=== PATIENT | female | born 1995 | race Two or more races ===

== ENCOUNTER 2017-08-04 13:01 | Day surgery (SDC) | payer BC ==
[~2017-08-04 13:01] MED LIST: Buffered Lidocaine 0.9% SYRIN* 5 ML/SYR SYRINGE INTRADERM ONE; DiMENhydriNATE IV* 50 MG/ML VIAL IV PUSH PRN; Famotidine IV* 10 MG/ML 2 ML (20 mg) IV ONE; Naloxone* 0.4 MG/ML 1 ML VIAL IV PRN; PROCHLORPERAZINE INJ 5 MG/ML 2 ML VIAL IV PRN; Scopolamine 1.5 mg* PATCH TRANSDERM PRN; fentaNYL* 50 MCG/ML 2 ML VIAL (100 MCG VIAL) IV PRN; oxyCODONE/Acetamin 5/325 MG* TAB PO PRN
[2017-08-04] MEDS ORDERED: Buffered Lidocaine 0.9% SYRIN* 5 ML/SYR SYRINGE ONE (13:12)
[2017-08-04] MEDS ORDERED: metroNIDAZOLE IV 500 MG/100ML* 500 MG/100 ML BAG IVPB ONE (13:12)
[2017-08-04] MEDS ORDERED: ceFAZolin 2 GM (*##) 2 GM/100 ML BAG USE CEFA2SOL IVPB ONE (13:12)
[2017-08-04] MEDS ORDERED: Famotidine IV* 10 MG/ML 2 ML (20 mg) ONE (13:12)
[2017-08-04] MEDS ORDERED: fentaNYL* 50 MCG/ML 2 ML VIAL (100 MCG VIAL) ONE ×2 (14:07→15:14)
[2017-08-04] MEDS ORDERED: Midazolam* 1 MG/ML 5 ML VIAL (5 MG) ONE (14:07)
[2017-08-04] MEDS ORDERED: Lidocain 1% EPI 1:100,000 * 30 ML MDV ONE (14:44)
[2017-08-04] MEDS ORDERED: Ondansetron INJ* 2 MG/ML VIAL ONE (15:28)
[2017-08-04] MEDS ORDERED: Propofol* 10 MG/ML 20 ML BTL IV PUSH ONE (15:28)
[2017-08-04] MEDS ORDERED: Lidocaine 2% PF * 5 ML VIAL ONE (15:28)
[2017-08-04] MEDS ORDERED: Glycopyrrolate IV* 0.2 MG/ML 1 ML VIAL ONE (15:28)
[2017-08-04] MEDS ORDERED: Neostigmine Methylsulfate* 2 MG/2 ML SYRINGE ONE (15:28)
[2017-08-04] MEDS ORDERED: Dexamethasone IV* 4 MG/ML 1 ML (4 MG) ONE (15:28)
[2017-08-04] MEDS ORDERED: Morphine INJ* 10 MG/ML 1 ML CARPUJECT ONE ×2 (16:11→16:37)
[2017-08-04] MEDS: Morphine INJ* 2 MG/ML 1 ML CARPUJECT IV PRN ×4 (16:12→16:39)
[2017-08-04] MEDS ORDERED: PROCHLORPERAZINE INJ 5 MG/ML 2 ML VIAL ONE (16:44)
[2017-08-04] MEDS ORDERED: oxyCODONE/Acetamin 5/325 MG* TAB ONE (17:01)
[2017-08-04 17:42] VITALS: BP 130/74
--- NOTE | 2017-08-05 13:58 | OP ---
DATE OF OPERATION: 08/04/17 - [facility] DATE OF : [birth year] SURGEON: Nando Andersen MD. CRM MARKETING MANAGER: Dr. Bolden. ANESTHESIA: General endotracheal anesthesia. PRE-OP DIAGNOSIS: Thyroglossal duct cyst. POST-OP DIAGNOSIS: Thyroglossal duct cyst. OPERATIVE PROCEDURE: Excision of a thyroglossal duct cyst using the radical Madeline procedure. COMPLICATIONS: None. DISPOSITION: Good. SPECIMEN: Thyroglossal duct cyst. BLOOD LOSS: Minimum. DESCRIPTION OF PROCEDURE: The patient was taken to the operating room and placed in the supine position on the operating room table. General anesthesia was induced and she was orotracheally intubated. Her head was extended and she had a midline crease just inferior to the cyst. This was demarcated to make an incision and it was injected with 1% lidocaine and 1:200,000 epinephrine. She was prepped with Betadine and draped in a sterile fashion. An incision was made through the skin and platysma muscle and superior flap was raised. The strap muscles were retracted laterally exposing the top of the cyst and then the dissection was taken around to circumferentially come around the cyst, triangulating into its deep portion on the hyoid bone. The tongue muscles were released off the superior aspect of the midline hyoid bone. The side biting snips were used to cut the hyoid bone on either side of midline and then the hyoid bone was removed with the cyst. Hemostasis was ensured. The wound was irrigated with saline. The strap muscles were reapproximated with 3-0 Vicryl. The skin was closed with 3-0 deep dermal Vicryl. A running subcuticular 4-0 Monocryl, skin glue, Mastisol and Steri-Strips were placed. The patient tolerated the procedure well, no complications, transferred to the recovery room in stable condition. [id number]/[facility] #: [id number] MTDD
[2017-08-07] MEDS ORDERED: Scopolamine PATCH Remove* 1 NOTE MISC PATCH OFF ONE (05:54)
== END 2017-08-04 17:45 | disposition home or self-care (01) ==
LOC: OR 13:01
PROVIDERS: ATTEND Otolaryngology
DX: Q89.2 Congenital malformations of other endocrine glands (principal); R21 Rash and other nonspecific skin eruption
CPT/HCPCS: 81025; 88305; 88311; A9270-GY; J0780; J1100; J2250; J2270; J2405; J2704; J3010; J3490

== ENCOUNTER 2017-09-13 10:29 | Emergency (ER) | payer BC ==
[2017-09-13 10:41] VITALS: BP 132/94
--- NOTE | 2017-09-13 11:02 | UC ---
Abdominal Pain Female HPI - HPI Summary HPI Summary: Pt presents with generalized abdominal pain, diarrhea, and vomiting since last night. She tells me that last night before she went to bed - she developed generalized abdominal aches and cramping. This morning when she woke up she had increased aches and cramping - vomited once and has had loose stools all morning. Did not eat breakfast due to this and feels nauseous. Denies fever, chills, SOB, chest pain, dysuria, flank pain, or vaginal symptoms. - History of Current Complaint Chief Complaint: UCAbdominalPain Stated Complaint: VOMITING ABDOMINAL PAIN Time Seen by Provider: 09/13/17 10:51 Hx Obtained From: Patient Hx Last Menstrual Period: jun Onset/Duration: Sudden Onset Severity Initially: Mild Severity Currently: Moderate Pain Intensity: 6 Pain Scale Used: 0-10 Numeric Location: Diffuse Allergies/Adverse Reactions: Allergies Allergy/AdvReac Type Severity Reaction Status Date / Time passion fruit Allergy ITCHY Verified 09/13/17 10:41 THROAT PMH/Surg Hx/FS Hx/Imm Hx - Additional Past Medical History Additional PMH: thyroid nodule Previously Healthy: Yes - Surgical History Surgical History: Yes Surgery Procedure, Year, and Place: cyst on throat bone removed - Family History Known Family History: Positive: Other - Kidney stones, cervical CA, thyroid disease - Social History Occupation: Student Lives: With Family Alcohol Use: Occasionally Substance Use Type: None Smoking Status (MU): Never Smoked Tobacco Review of Systems Constitutional: Negative Skin: Negative Respiratory: Negative Cardiovascular: Negative Gastrointestinal: Abdominal Pain, Vomiting, Diarrhea Genitourinary: Negative Neurovascular: Negative Musculoskeletal: Negative Neurological: Negative Psychological: Negative All Other Systems Reviewed And Are Negative: Yes Physical Exam - Summary Physical Exam Summary: GENERAL: NAD. WDWN. No pain distress. SKIN: No rashes, sores, ulcers, masses, lesions. NECK: Supple. Nontender. No lymphadenopathy. CHEST: CTAB. No r/r/w. No accessory muscle use. Breathing comfortably and in no distress. CV: RRR. Without m/r/g. Pulses intact. Brisk cap refill. ABDOMEN: Generalized TTP. Soft. No distention or guarding. No organomegaly. No CVA tenderness. Bowel sounds present x4. Negative diaz's sign. No RLQ tenderness. Negative obturator and psoas sign. NEURO: Alert. CN II-XII grossly intact. PSYCH: Age appropriate behavior. Triage Information Reviewed: Yes Vital Signs: Initial Vital Signs Temp 98.6 F 09/13/17 10:38 Pulse 107 09/13/17 10:38 Resp 18 09/13/17 10:38 BP 132/94 09/13/17 10:38 Pulse Ox 100 09/13/17 10:38 Abd Pain Female Course/Dx - Course Course Of Treatment: Suspect viral gastroenteritis. I advised her to monitor her symptoms and if she developed a fever, worsening abd pain, increased vomiting, or RLQ pain - go to ED. - Differential Dx/Diagnosis Provider Diagnoses: Viral gastroenteritis. Discharge - Sign-Out/Discharge Documenting (check all that apply): Discharge/Admit/Transfer - Discharge Plan Condition: Stable Disposition: HOME Prescriptions: Ondansetron TAB* [Zofran 4 MG Tab*] 4 mg PO Q8H PRN #15 tab PRN Reason: Nausea Patient Education Materials: Gastroenteritis (ED) Forms: *Work Release Referrals: No Primary Care Phys,NOPCP [Primary Care Provider] - Additional Instructions: If you develop a fever, increased abdominal pain, shortness of breath, chest pain, new or worsening symptoms - please call your PCP or go to the ED. - Billing Disposition and Condition Condition: STABLE Disposition: HOME
== END 2017-09-13 11:16 | disposition home or self-care (01) ==
LOC: UCEAST 10:29
DX: A08.4 Viral intestinal infection, unspecified (principal); Z32.02 Encounter for pregnancy test, result negative; E04.1 Nontoxic single thyroid nodule
CPT/HCPCS: 81003; 84702; 99212; G0463

== ENCOUNTER 2017-09-14 19:40 | Emergency (ER) | payer BC | END 2017-09-14 19:47 | disposition left against medical advice (07) | LOC: UCEAST 19:40 | DX: N95.1 Menopausal and female climacteric states (principal); R11.10 Vomiting, unspecified; R19.7 Diarrhea, unspecified; Z53.21 Procedure and treatment not carried out due to patient leaving prior to being seen by health care provider ==

== ENCOUNTER 2018-02-21 12:29 | Emergency (ER) | payer BC ==
[2018-02-21 13:27] VITALS: BP 127/75
--- NOTE | 2018-02-21 15:52 | UC ---
Complaint Female HPI - HPI Summary HPI Summary: 22 y/o female with diarrhea last night, resolving, feeling better, able to hold down liquid well, had bread this AM wihtout difficulty, no fever, chills, abdominal pains however continued loose stools. unable to work due to fatigue, contact precautions. - History Of Current Complaint Chief Complaint: UCGI Stated Complaint: VOMITING, AND DIARRHEA Time Seen by Provider: 02/21/18 14:35 Hx Obtained From: Patient Hx Last Menstrual Period: 02/09/18 ?: No Onset/Duration: Sudden Onset, Lasting Hours Timing: Intermittent Severity Initially: Mild Severity Currently: Mild Pain Intensity: 0 Pain Scale Used: 0-10 Numeric - Allergies/Home Medications Allergies/Adverse Reactions: Allergies Allergy/AdvReac Type Severity Reaction Status Date / Time passion fruit Allergy ITCHY Verified 02/21/18 13:27 THROAT PMH/Surg Hx/FS Hx/Imm Hx Previously Healthy: Yes - Surgical History Surgical History: Yes Surgery Procedure, Year, and Place: cyst on throat bone removed - Family History Known Family History: Positive: Other - Kidney stones, cervical CA, thyroid disease - Social History Alcohol Use: Occasionally Substance Use Type: None Smoking Status (MU): Never Smoked Tobacco Review of Systems Gastrointestinal: Diarrhea Is Patient Immunocompromised?: No All Other Systems Reviewed And Are Negative: Yes Physical Exam Triage Information Reviewed: Yes Appearance: Well-Appearing, No Pain Distress, Well-Nourished Vital Signs: Initial Vital Signs Temp 97.7 F 02/21/18 13:24 Pulse 95 02/21/18 13:24 Resp 18 02/21/18 13:24 BP 127/75 02/21/18 13:24 Pulse Ox 97 02/21/18 13:24 Vital Signs Reviewed: Yes Eyes: Positive: Conjunctiva Clear Abdomen Description: Positive: Nontender, No Organomegaly, Soft, Bruit. Negative: CVA Tenderness (R), CVA Tenderness (L) Bowel Sounds: Positive: Present Complaint Female Dx - Course Course Of Treatment: acute diarrhea, resolving. FOllow up as needed increase fluids, work note given - Differential Dx/Diagnosis Provider Diagnoses: acute diarrhea Discharge - Sign-Out/Discharge Documenting (check all that apply): Patient Departure All imaging exams completed and their final reports reviewed: Yes - Discharge Plan Condition: Good Disposition: HOME Patient Education Materials: Acute Diarrhea (ED) Forms: *Work Release Referrals: No Primary Care Phys,NOPCP [Primary Care Provider] - Additional Instructions: - Increase fluids - [place] diet - Return with increased symptoms, fevers, chills, abdominal pains - Work note given - Billing Disposition and Condition Condition: GOOD Disposition: Home
== END 2018-02-21 14:44 | disposition home or self-care (01) ==
LOC: UCEAST 12:29
DX: R19.7 Diarrhea, unspecified (principal)
CPT/HCPCS: 99211; G0463

== ENCOUNTER 2018-05-02 12:17 | Emergency (ER) | payer BC ==
--- OUTSIDE RECORDS SUMMARY | 2018-05-02 12:22 | XMS REPORT | Continuity of Care Document ---
:1995 External Reference #:[id number] Author Name Dev Andersen M.D. Address [address] [place] [address] Care Team Providers Name Role Phone Natalia Frazier Care Team Information Secondary Connector Armature Unavailable Natalia Frazier Primary Care Physician Unavailable Payers Type Date Identification Numbers Payment Provider Subscriber Policy Number: [id number] [facility] Adalid Soler Group Number: [id number] [address] [address] PayID: [id number] [place] [id number] Advance Directives Description No Information Available Problems Description No Information Family History Date Family Member(s) Problem(s) Comments General Allergies General Cancer General Diabetes General Heart Disease General Migraine General Thyroid Disease Father Allergies Social History Type Date Description Comments Sex Unknown Occupation [employer] Tobacco Use Start: Unknown Never Smoked Cigarettes Tobacco Use Start: Unknown Never Smoked Cigars Tobacco Use Start: Unknown Never Smoked A Pipe Smokeless Tobacco Never Used Smokeless Tobacco ETOH Use Currently occasionally consumes alcohol Tobacco Use Start: Unknown Patient has never smoked Smoking Status Reviewed: 04/26/18 Patient has never smoked Allergies, Adverse Reactions, Alerts Description No Known Drug Allergies Medications Medication Date Status Form Strength Qnty SIG Indications Ordering Provider Apri Active Tablets 0.15-30mg-m as directed Michael Patel, 000 cg Natalia Percocet Hx Tablets 7.5-325mg 20tabs 1 mouth Q89.2 Smooth Pascual - every 4 MD Yuan hours as 018 needed pain Augmentin Hx Tablets 875-125mg 20tabs 1 by mouth Q89.2 Dev Pascual - twice a day Nathaly with food M.DShruti 018 Percocet Hx Tablets 7.5-325mg 20tabs 1 mouth Q89.2 Dev Pascual - every 4 Delia, hours as M.D. 018 needed pain Immunizations Description No Information Available Vital Signs Date Vital Result Comment 04/26/2018 8:52am Weight 169.00 lb Weight 76.658 kg Height 62 inches 5'2" Height in cm's 157.5 cm BMI (Body Mass Index) 30.9 kg/m2 08/10/2017 2:48pm Weight 169.00 lb Weight 76.658 kg Height 62 inches 5'2" Height in cm's 157.5 cm BMI (Body Mass Index) 30.9 kg/m2 08/03/2017 1:36pm BP Systolic 137 mmHg BP Diastolic 92 mmHg Heart Rate 93 /min Respiratory Rate 17 /min Weight 169.00 lb Weight 76.658 kg Height 62 inches 5'2" Height in cm's 157.5 cm BMI (Body Mass Index) 30.9 kg/m2 07/06/2017 2:12pm Weight 169.00 lb Weight 76.658 kg Height 62 inches 5'2" Height in cm's 157.5 cm BMI (Body Mass Index) 30.9 kg/m2 Results Test Date Facility Test Result H/L Range Note Laboratory test 08/04/2017 [facility] SEE RESULT 1 finding c/o Department [facility] [place] [address] [phone] 1 SEE RESULT BELOW Name: LOUISA SOLER : [address]: Dev Andersen MD Acct: [id number] Unit: [id number] AGE: 22 Location: OR Re08/04/17 SEX: F Status: DEP SD SPEC: [id number] NOA: 08/04/17-[address] [facility] [address]: Dev Andersen MD REQ: [id number] RECD: 08/04/17 STATUS: SOUT _ ORDERED: Decal, LEVEL 4 FINAL DIAGNOSIS Neck, midline, excision: -- Thyroglossal duct cyst with extensive squamous debris and cholesterol clefts with exuberant foreign body giant cell reaction. -- Portion of hyoid bone with normocellular bone marrow with mixed trilinear hematopoiesis. 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 The cut surface is rubbery parks-castro to parks-white and lobulated. The specimen is inked, serially sectioned and entirely submitted in cassettes A through E to include bone following decalcification in cassettes D and E. MICROSCOPIC DESCRIPTION . Signed (signature on file) Bo Leo MD 1511 END OF REPORT DEPARTMENT OF PATHOLOGY, [address] [place] [address] Bo Leo M.D. Director [facility] # [id number] Procedures Date Code Description Status 08/04/2017 25297 Excision, Thyroglossal Duct Cyst Completed 08/04/2017 40568 Excision, Thyroglossal Duct Cyst Completed Encounters Type Date Location Provider Dx Diagnosis Office Visit 04/26/2018 [place],After Dev [email or web address] Congenital 9:00a 05/24/07 Clarisa Andersen malformations of other endocrine glands Office Visit 08/03/2017 [place],After Dev [email or web address] Congenital 1:45p 05/24/07 Clarisa Andersen malformations of other endocrine glands Office Visit 07/06/2017 [place],After Dev [email or web address] Congenital 2:30p 05/24/07 Clarisa Andersen malformations of other endocrine glands R21 Rash and other nonspecific skin eruption Plan of Treatment 04/26/2018 - Dev Andersen M.D.Q89.2 Congenital malformations of other endocrine glandsComments:The patient was worried that her thyroglossal duct cyst was coming back. What she is palpating his her thyroid cartilage at the Edgar apple with the thyroid notch. At the level of the cyst there is not a mass.
--- NOTE | 2018-05-02 12:27 | UC ---
Respiratory Complaint HPI - HPI Summary HPI Summary: 23 yo female presents with chest wall pain. She tells me that yesterday around 0600 she developed vomiting and generalized abdominal cramping. She vomited multiple times yesterday and had loose stools that ended around 1700 yesterday. This morning she woke up with chest wall pain and feeling like she pulled a muscle as it "pulls" in her chest when she breathes. She ate toast this morning that she tolerated well. She is drinking water well. No more vomiting or loose stool. Denies fever, chills, cough, SOB, palpitations, dysuria. - History of Current Complaint Stated Complaint: VOMITING, AND FEVER Time Seen by Provider: 05/02/18 12:27 Hx Obtained From: Patient Hx Last Menstrual Period: 02/09/18 Onset/Duration: Sudden Onset Severity Initially: Moderate Severity Currently: Moderate Pain Intensity: 7 Pain Scale Used: 0-10 Numeric - Allergies/Home Medications Allergies/Adverse Reactions: Allergies Allergy/AdvReac Type Severity Reaction Status Date / Time passion fruit Allergy ITCHY Verified 05/02/18 12:28 THROAT Home Medications: Home Medications Dm/Acetaminophen/Doxylamine [Goodsense Nighttime Cold 15-6.25-325 mg] 1 cap PO ONCE PRN 05/02/18 [History Confirmed 05/02/18] Ibuprofen 400 mg PO ONCE PRN 05/02/18 [History Confirmed 05/02/18] PMH/Surg Hx/FS Hx/Imm Hx - Additional Past Medical History Additional PMH: None - Surgical History Surgical History: Yes Surgery Procedure, Year, and Place: cyst on throat bone removed - Family History Known Family History: Positive: Other - Kidney stones, cervical CA, thyroid disease - Social History Occupation: Employed Full-time Lives: With Family Alcohol Use: Occasionally Substance Use Type: None Smoking Status (MU): Never Smoked Tobacco Review of Systems All Other Systems Reviewed And Are Negative: Yes Constitutional: Positive: Negative Skin: Positive: Negative Eyes: Positive: Negative ENT: Positive: Negative Respiratory: Positive: Negative Cardiovascular: Positive: Negative Gastrointestinal: Positive: Vomiting, Diarrhea, Nausea Genitourinary: Positive: Negative Motor: Positive: Negative Neurovascular: Positive: Negative Musculoskeletal: Positive: Other: - Chest wall pain Neurological: Positive: Negative Psychological: Positive: Negative Physical Exam - Summary Physical Exam Summary: GENERAL: NAD. WDWN. No pain distress. SKIN: No rashes, sores, lesions, or open wounds. HEENT: Head: AT/NC Eyes: EOM intact. Conjunctiva clear without inflammation or discharge. Ears: Hearing grossly normal. TMs intact, no bulging, erythema, or edema. Nose: Nasal mucosa pink and moist. NTTP maxillary and frontal sinus. Throat: Posterior oropharynx without exudates, erythema, or tonsillar enlargement. Uvula midline. NECK: Supple. Nontender. No lymphadenopathy. CHEST: CTAB. No r/r/w. No accessory muscle use. Breathing comfortably and in no distress. CV: RRR. Without m/r/g. Pulses intact. Cap refill <2seconds ABDOMEN: Soft. NTTP. No distention or guarding. No CVA tenderness. Bowel sounds present MSK: Mild TTP over chest wall muscles. NEURO: Alert. PSYCH: Age appropriate behavior. Triage Information Reviewed: Yes Vital Signs: Vital Signs: Temp Pulse Resp BP Pulse Ox 98.3 F 97 16 128/83 100 05/02/18 12:24 05/02/18 12:24 05/02/18 12:24 05/02/18 12:24 05/02/18 12:24 Vital Signs Reviewed: Yes Respiratory Course/Dx - Course Course Of Treatment: Suspect her chest wall pain is due to her episodes of vomiting yesterday. She is eating and drinking well today. Advised to monitor her symptoms and apply ice/heat to the area to decrease pain. F/u if symptoms persist or worsen. - Differential Dx/Diagnosis Provider Diagnosis: Chest wall pain, Vomiting Discharge - Sign-Out/Discharge Documenting (check all that apply): Patient Departure All imaging exams completed and their final reports reviewed: No Studies - Discharge Plan Condition: Stable Disposition: HOME Patient Education Materials: Viral Syndrome (ED) Referrals: No Primary Care Phys,NOPCP [Primary Care Provider] - Additional Instructions: If you develop a fever, shortness of breath, chest pain, new or worsening symptoms - please call your PCP or go to the ED. Your exam today was normal and you are improving well. Please advance your diet slowly with bananas, rice, applesauce, and toast - Billing Disposition and Condition Condition: STABLE Disposition: Home
[2018-05-02 12:28] VITALS: BP 128/83
== END 2018-05-02 12:41 | disposition home or self-care (01) ==
LOC: UCEAST 12:17
DX: R07.89 Other chest pain (principal); R11.10 Vomiting, unspecified
CPT/HCPCS: 99211; G0463

== ENCOUNTER 2019-05-12 10:41 | Inpatient (IN) | payer BC ==
[2019-05-12] MEDS ORDERED: Lactated Ringers 1000 ML Bag* 1,000 ML IV ONE ×2 (12:46→20:39)
[2019-05-12] MEDS ORDERED: Buffered Lidocaine 1% SYRIN* 1 ML/SYRINGE INTRADERM ONE (12:46)
--- NOTE | 2019-05-12 12:56 | HP ---
General Information - Reason for Visit at 38 weeks in labor with cervical dilation at 6cm. - General Information Maternal Age: 24 Grav: 1 Para: 0 SAB: 0 IEA: 0 Estimated Due Date: 05/24/19 Determined By: Early Ultrasound Gestational Age in Weeks/Days: 38 2/7 Maternal Blood Type and Rh: A Positive - Results this Serology/RPR Result: Non-Reactive Rubella Result: Immune HBsAg Result: Negative HIV Result: Negative GBS Culture Result: Negative Past Medical History Delivery History: See Records Pertinent Past Medical History: See Records Pertinent Past Surgical History: See Records Pertinent Family History: See Records - Antepartal Records Antepartal Records: Reviewed, Complicated by: - Hypertension at last office visit, Normal 24 urine collection, uric acid, and LFT's Review of Systems Constitutional: Uncomfortable - with contractions CV Complaint: No Respiratory: Shortness of Breath: No Gastrointestinal: No Nausea/Vomiting, Normal Bowel Movement Genitourinary: No Dysuria, No Bleeding, No Leaking Fluid Musculoskeletal: No Epigastric Pain, Contractions Neurological: No Headache, No Visual Changes Movement: Normal Exam Allergies/Adverse Reactions: Allergies passion fruit Allergy (Verified 05/02/18 12:28) ITCHY THROAT Temp 97.8 BP 133/91 P 90 RR 18 POx 100 % RA Lab Values - Entire Visit: CBC Blood type/screen pending - Measurements Height: 5 ft 3 in Weight: 200 lb Weight in lbs: 200.231574 Body Mass Index (BMI): 35.4 Pre- Weight: 187 lb Weight Gained This : 13 lbs and 0 ozs - Exam Breast: Breast Exam Deferred CVA: No CVA Tenderness Extremities: No Edema Heart: Normal Rhythm/Heart Sounds HEENT: No Significant Findings Lungs: Clear Bilaterally Rectal: Rectal Exam Deferred Reflexes: DTR 2+ Thyroid: No Thyromegaly - Abdominal Exam Abdomen Exam: Non-Tender, Fundal Height Consistent with Dates - Ultrasound/Biophysical Profile Biophysical Profile: Normal Reactive NST Targeted Exam Findings See L&D Outpatient Visit Provider Note for Findings: N/A Cervical Exam: 7cm Effacement: 80% Station: 0 Presenting Part: Vertex Membrane Status: Intact Bleeding/Discharge: None EFM Findings - External Monitor Findings Baseline Heart Rate: 130 External Monitor Findings: Accelerations Present Contractions: Regular - Q 4-5 minutes apart, Moderate, 45-90 Seconds Assessment/Plan - Assessment Term in labor. - Plan Plan: Admit - Anticipate Vaginal Delivery - Date/Time of Admission Date of Admission: 05/12/19 Time of Admission: 12:30
[2019-05-12] MEDS ORDERED: Lactated Ringers 1000 ML Bag* 1,000 ML IV SCH ×3 (13:00→23:45)
[2019-05-12 13:53] LABS: Urine Benzodiazepine Screen None Detected (None Detect); Urine Opiates Screen None Detected (None Detect)
[2019-05-12 14:35] LABS: ABS Lymphocytes 1.9 10^3/ul (1.0-4.8); ABS Monocytes 0.5 10^3/ul (0-0.8); ABS Neutrophils 4.6 10^3/ul (1.5-7.7); Eosinophil % 0.1 %; Hematocrit 39 % (35-47); Hemoglobin 13.5 g/dL (12.0-16.0); Mean Corpuscular HGB Conc 35 g/dL (31-36); Mean Corpuscular Hemoglobin 30 pg (27-31); Mean Corpuscular Volume 87 fL (80-97); Mean Platelet Volume 9.6 fL (7.4-10.4); Platelet Count 165 10^3/uL (150-450); Red Blood Count 4.48 10^6 /uL (3.70-4.87); Red Cell Distribution Width 13 % (10-15)
[2019-05-12] MEDS ORDERED: Oxytocin in LR* 20 UNITS/1,000 ML BAG IVPB ONE (18:09)
[2019-05-12] MEDS ORDERED: Oxytocin in LR* 20 UNITS/1,000 ML BAG IVPB SCH (19:00)
[2019-05-12] MEDS ORDERED: OBEPIDURAL* 250 ML EPIDURAL ONE (19:03)
[2019-05-12] MEDS ORDERED: Famotidine TAB* 20 MG PO PRN (20:39)
[2019-05-12] MEDS ORDERED: Phenylephrine 40 MCG/ML SYRINGE IV PUSH PRN ×2 (20:39)
[2019-05-12] MEDS ORDERED: Lactated Ringers 1000 ML Bag* 500 ML IV PRN ×2 (20:39)
[2019-05-12] MEDS ORDERED: Sodium Citrate/Citric Acid* 15 ML UDC PO PRN (20:39)
[2019-05-12] MEDS ORDERED: OBEPIDURAL* 250 ML EPIDURAL SCH (21:00)
[2019-05-12] MEDS ORDERED: Glycerin ADULT SUPP PR PRN (23:56)
--- NOTE | 2019-05-13 00:04 | PROCNOTE ---
[facility] OB: Delivery Note - Delivery A Date of : 05/13/19 Time of : 23:25 Sex: Female Weight at : 6 lb 9 oz Score 1 Minute: 9 Score 5 Minutes: 9 Gestational Age in Weeks and Days at Delivery: 38 Weeks and 3 Days Delivery Method: Spontaneous Vaginal Labor: Spontaneous Did Patient attempt ?: N/A, No Previous Amniotic Fluid: Clear Estimated Blood Loss: 300 Anesthesia/Analgesia: CEI for Labor Delivered By: Adalid Crowder - Nursery Level of Nursery: Regular/Bedside - Perineum Perineal Injury: Perineal Laceration, 3rd Degree Extension Perineal Repair: By Delivering Practioner - Events Delivery Events of Note: Pitocin During Labor - augmentation
[2019-05-13] MEDS: Dibucaine 1% 28.35 GM TUBE PR PRN ×2 (00:43→21:11)
[2019-05-13] MEDS: Ibuprofen TAB* 600 MG PO PRN ×3 (00:43→21:11)
[2019-05-13] MEDS: Acetaminophen TAB* 325 MG PO PRN ×4 (00:43→20:02)
[2019-05-13] MEDS: Witch Hazel PAD* JAR TOPICAL PRN ×2 (00:43→21:11)
[2019-05-13 06:57] LABS: ABS Lymphocytes 2.1 10^3/ul (1.0-4.8); ABS Monocytes 0.7 10^3/ul (0-0.8); ABS Neutrophils 8.5 10^3/ul (1.5-7.7); Eosinophil % 0.1 %; Hematocrit 35 % (35-47); Lymphocyte % 18.5 %; Mean Corpuscular HGB Conc 35 g/dL (31-36); Mean Corpuscular Hemoglobin 30 pg (27-31); Mean Corpuscular Volume 86 fL (80-97); Mean Platelet Volume 9.7 fL (7.4-10.4); Nucleated Red Blood Cells % 0.1; Platelet Count 152 10^3/uL (150-450); Red Blood Count 4.01 10^6 /uL (3.70-4.87); Red Cell Distribution Width 13 % (10-15); White Blood Count 11.4 10^3/uL (3.5-10.8)
[2019-05-13] MEDS ORDERED: Simethicone TAB* 80 MG TAB.CHEW PO SCH (08:30)
[2019-05-13] MEDS: Docusate CAP* 100 MG PO SCH ×2 (08:34→20:03)
[2019-05-13] MEDS ORDERED: Influenza VAC *QUAD* 2019-20* 0.5 ML SYRINGE IM ONE (09:00)
[2019-05-13] MEDS ORDERED: Ferrous Gluconate TAB* 324 MG TAB PO SCH (09:00)
[2019-05-14] MEDS: Acetaminophen TAB* 325 MG PO PRN ×3 (00:54→19:02)
[2019-05-14] MEDS: Ibuprofen TAB* 600 MG PO PRN ×3 (03:44→19:01)
[2019-05-14 07:32] VITALS: BP 129/88
[2019-05-14] MEDS: Docusate CAP* 100 MG PO SCH ×3 (09:25→19:02)
[2019-05-14] MEDS: Dibucaine 1% 28.35 GM TUBE PR PRN (13:32)
[2019-05-14] MEDS: Witch Hazel PAD* JAR TOPICAL PRN (13:32)
== END 2019-05-14 19:05 | disposition home or self-care (01) | DRG 542 ==
LOC: MCHOBOUT 10:41 → MCHOB 11:02
PROVIDERS: ADMIT Obstetrics & Gynecology; ATTEND Obstetrics & Gynecology
PROC: 4A1HXCZ Monitoring of Products of Conception, Cardiac Rate, External Approach (ICD-10-PCS; 2019-05-12)
PROC: 10907ZC Drainage of Amniotic Fluid, Therapeutic from Products of Conception, Via Natural or Artificial Opening (ICD-10-PCS; 2019-05-12)
PROC: 10E0XZZ Delivery of Products of Conception, External Approach (ICD-10-PCS; principal; 2019-05-13)
PROC: 0DQR0ZZ Repair Anal Sphincter, Open Approach (ICD-10-PCS; 2019-05-13)
DX: O70.20 Third degree perineal laceration during delivery, unspecified (principal); Z37.0 Single live birth; Z3A.38 38 weeks gestation of pregnancy; Z91.018 Allergy to other foods
CPT/HCPCS: 36415; 80307; 85025; 86850; 86900; 86901; 90686; A9270-GY